=== PATIENT | female | born 1955 | race Two or more races ===

== ENCOUNTER 2022-09-20 05:45 | Day surgery (SDC) | payer OTHER ==
[~2022-09-20] VITALS: Ht 152.4 cm; Wt 55.8 kg
[~2022-09-20 05:45] MED LIST: CRESTOR20 MG PO; FOLBIC RF TABL1 EACH PO; NORVASC5 MG PO; OMEGA-31000 MG PO; SYNTHROID50 MCG PO; XANAX XR2 MG PO; ZEGERID 40 MG1 EACH PO
== END 2022-09-20 19:00 | disposition home or self-care (01) ==
LOC: CIR.AMB 05:45
PROVIDERS: ATTEND Orthopaedic Surgery
DX: M75.121 Complete rotator cuff tear or rupture of right shoulder, not specified as traumatic (principal); M24.111 Other articular cartilage disorders, right shoulder; I10 Essential (primary) hypertension; E03.9 Hypothyroidism, unspecified

== ENCOUNTER 2025-05-24 10:00 | Day surgery (SDC) | payer OTHER ==
[2025-05-24] MEDS ORDERED: fentaNYL CITRATE 50 MCG/ML AMPUL IV PUSH ONE (15:45)
[2025-05-24] MEDS ORDERED: DIPHENHYDRAMINE HCL 50 MG/ML VIAL 1ML IV ONE (15:45)
[2025-05-24] MEDS ORDERED: MIDAZOLAM HCL 2 MG/2 ML VIAL IV ONE (15:45)
== END 2025-05-24 17:05 | disposition home or self-care (01) ==
LOC: AMB-ENDOS 10:00
PROVIDERS: ATTEND Internal Medicine
DX: C18.2 Malignant neoplasm of ascending colon (principal); K63.5 Polyp of colon; K63.89 Other specified diseases of intestine; D12.2 Benign neoplasm of ascending colon; Z86.0101 Personal history of adenomatous and serrated colon polyps